=== PATIENT | female | born 1975 | race Caucasian/White ===

== ENCOUNTER 2025-05-20 09:17 | Outpatient (CLI) | payer BC | END 2025-05-20 09:18 | disposition home or self-care (01) | LOC: CSHSLEEP 09:17 | PROVIDERS: ATTEND Family Medicine | DX: G47.33 Obstructive sleep apnea (adult) (pediatric) (principal); E66.9 Obesity, unspecified; Z68.28 Body mass index [BMI] 28.0-28.9, adult; F41.9 Anxiety disorder, unspecified; K21.9 Gastro-esophageal reflux disease without esophagitis | CPT/HCPCS: 95810 ==

== ENCOUNTER 2025-05-31 09:15 | Outpatient (CLI) | payer BC | END 2025-05-31 09:16 | disposition home or self-care (01) | LOC: CSHSLEEP 09:15 | PROVIDERS: ATTEND Family Medicine | DX: G47.33 Obstructive sleep apnea (adult) (pediatric) (principal); F41.9 Anxiety disorder, unspecified; K21.9 Gastro-esophageal reflux disease without esophagitis; E66.9 Obesity, unspecified; Z68.28 Body mass index [BMI] 28.0-28.9, adult | CPT/HCPCS: 95811 ==